=== PATIENT | female | born 1950 | race Caucasian/White ===

== ENCOUNTER 2018-02-13 11:22 | Inpatient (IN) | payer MEDICARE, OTHER ==
[2018-02-13 11:59] LABS: ADD MAN DIFF? NO
[2018-02-13 12:00] LABS: WHITE BLOOD COUNT 9.3 10^3/ul (4.8-10.8)
[2018-02-13 12:00] LABS: BASOPHIL # 0.1 10^3/ul (0.0-0.1); BASOPHILS % 0.5 % (0.0-2.0); EOSINOPHILS % 0.3 % (0.0-7.0); HEMATOCRIT 45.6 % (37.0-47.0); HEMOGLOBIN 13.8 g/dl (12.0-16.0); LYMPHOCYTES # 1.6 10^3/ul (0.8-2.9); MEAN CORPUSCULAR HEMOGLOBIN 28.3 pg (29.0-33.0); MEAN CORPUSCULAR HGB CONC 30.3 g/dl (32.0-37.0); MEAN CORPUSCULAR VOLUME 93.6 fl (82.0-101.0); MEAN PLATELET VOLUME 10.1 fl (7.4-10.4); MONOCYTE # 0.4 10^3/ul (0.3-0.9); MONOCYTES % 4.2 % (0.0-11.0); NEUTROPHIL # 7.1 10^3/ul (1.6-7.5); NEUTROPHILS % 76.8 % (39.0-77.0); PLATELET COUNT 226 10^3/UL (140-415); RED BLOOD COUNT 4.87 10^6/ul (4.20-5.40); RED CELL DISTRIBUTION WIDTH 14.5 % (11.5-14.5)
[2018-02-13] MEDS ORDERED: NITROGLYCERIN (SL) 0.4 MG TAB SL (12:00)
[2018-02-13 12:27] LABS: ANION GAP 9 (5-13); BLOOD UREA NITROGEN 15 mg/dl (7-20); CALCIUM 10.1 mg/dl (8.4-10.2); CARBON DIOXIDE 32 mmol/L (21-31); CHLORIDE 99 mmol/L (97-110); CREATININE 0.67 mg/dl (0.44-1.00); Estimated GFR > 60 mL/min (>60); GLUCOSE 254 mg/dl (70-220); POTASSIUM 4.5 mmol/L (3.5-5.1); SODIUM 140 mmol/L (135-144)
[2018-02-13 12:39] LABS: TROPONIN-I < 0.012 ng/ml (0.000-0.120)
[2018-02-13] MEDS: FUROSEMIDE 40 MG INJ IV ×2 (12:43→17:34)
[2018-02-13] MEDS: ONDANSETRON (ODT) 4 MG TAB ODT (12:43)
[2018-02-13] MEDS: NITROGLYCERIN 2% 1 GM OINT PKT TD (12:44)
[2018-02-13] MEDS: HYDROCODONE/APAP (10/325) TAB PO (12:44)
[2018-02-13] MEDS: LABETALOL HCL 20MG INJ IV (13:17)
[2018-02-13] MEDS ORDERED: ACETAMINOPHEN 325 MG TAB PO (13:30)
[2018-02-13] MEDS ORDERED: ONDANSETRON 4 MG INJ IV (13:30)
[2018-02-13] MEDS ORDERED: NACL 0.9% 3 ML SYG IV (14:30)
[2018-02-13] MEDS ORDERED: HYDROmorphONE 0.5 MG/0.5 ML SYG IV (14:30)
[2018-02-13] MEDS ORDERED: GLUCOSE GEL 15 GRAM TUBE PO ×2 (15:30)
[2018-02-13] MEDS ORDERED: GLUCAGON 1 MG INJ IM (15:30)
[2018-02-13] MEDS ORDERED: DEXTROSE 50% 50 ML SYRINGE IV ×2 (15:30)
[2018-02-13] MEDS ORDERED: GLUCOSE GEL 15 GRAM TUBE BUCCAL (15:30)
[2018-02-13] MEDS: metFORMIN 500 MG TAB PO (17:33)
[2018-02-13] MEDS: IBUPROFEN 600 MG TAB PO (17:37)
[2018-02-13 19:01] LABS: CREATINE KINASE 36 IU/L (23-200)
[2018-02-13 19:15] LABS: CK INDEX 1.9; CK-MB 0.69 ng/ml (0.0-2.4); TROPONIN-I < 0.012 ng/ml (0.000-0.120)
[2018-02-13] MEDS: POTASSIUM CHLORIDE (SR) 8 MEQ CAP PO (21:07)
[2018-02-14 01:36] LABS: CREATINE KINASE 30 IU/L (23-200)
[2018-02-14 01:48] LABS: CK INDEX 2.9; CK-MB 0.86 ng/ml (0.0-2.4); TROPONIN-I < 0.012 ng/ml (0.000-0.120)
[2018-02-14] MEDS: FUROSEMIDE 40 MG INJ IV ×2 (05:38→17:42)
[2018-02-14] MEDS: IBUPROFEN 600 MG TAB PO (05:44)
[2018-02-14 05:57] LABS: ADD MAN DIFF? NO
[2018-02-14 06:17] LABS: BASOPHIL # 0.1 10^3/ul (0.0-0.1); BASOPHILS % 0.6 % (0.0-2.0); EOSINOPHILS % 0.3 % (0.0-7.0); HEMATOCRIT 40.9 % (37.0-47.0); HEMOGLOBIN 12.2 g/dl (12.0-16.0); LYMPHOCYTES # 1.5 10^3/ul (0.8-2.9); LYMPHOCYTES % 14.3 % (15.0-51.0); MEAN CORPUSCULAR HEMOGLOBIN 28.6 pg (29.0-33.0); MEAN CORPUSCULAR HGB CONC 29.8 g/dl (32.0-37.0); MEAN PLATELET VOLUME 10.5 fl (7.4-10.4); MONOCYTE # 0.6 10^3/ul (0.3-0.9); MONOCYTES % 5.6 % (0.0-11.0); NEUTROPHIL # 8.2 10^3/ul (1.6-7.5); NEUTROPHILS % 78.6 % (39.0-77.0); PLATELET COUNT 217 10^3/UL (140-415); RED BLOOD COUNT 4.26 10^6/ul (4.20-5.40); RED CELL DISTRIBUTION WIDTH 14.6 % (11.5-14.5)
[2018-02-14 06:17] LABS: WHITE BLOOD COUNT 10.4 10^3/ul (4.8-10.8)
[2018-02-14 06:48] LABS: ALANINE AMINOTRANSFERASE 23 IU/L (13-69); ALBUMIN 3.7 g/dl (3.3-4.9); ALBUMIN/GLOBULIN RATIO 1.15; ALKALINE PHOSPHATASE 77 IU/L (42-121); ANION GAP 9 (5-13); ASPARTATE AMINO TRANSFERASE 16 IU/L (15-46); BILIRUBIN,INDIRECT 0.5 mg/dl (0-1.1); BILIRUBIN,TOTAL 0.5 mg/dl (0.2-1.3); BLOOD UREA NITROGEN 18 mg/dl (7-20); CALCIUM 9.3 mg/dl (8.4-10.2); CARBON DIOXIDE 38 mmol/L (21-31); CHLORIDE 98 mmol/L (97-110); CREATININE 0.81 mg/dl (0.44-1.00); Estimated GFR > 60 mL/min (>60); GLUCOSE 176 mg/dl (70-220); POTASSIUM 4.4 mmol/L (3.5-5.1); SODIUM 145 mmol/L (135-144); TOTAL PROTEIN 6.9 g/dl (6.1-8.1)
[2018-02-14 06:57] LABS: HEMOGLOBIN A1C 8.5 % (0-5.9)
[2018-02-14] MEDS: POTASSIUM CHLORIDE (SR) 8 MEQ CAP PO ×2 (08:03→20:45)
[2018-02-14] MEDS: LOSARTAN 50 MG TAB PO (08:04)
[2018-02-14] MEDS: metFORMIN 500 MG TAB PO ×2 (08:04→17:40)
[2018-02-14] MEDS: HYDROCODONE/APAP (5/325) TAB PO (08:05)
[2018-02-14] MEDS: ENOXAPARIN 30 MG/0.3 ML SYG SC (08:06)
[2018-02-14] MEDS ORDERED: NYSTATIN 30 GM POWDER BTL TOP (11:00)
[2018-02-14] MEDS: NYSTATIN 15 GM POWDER BTL TOP ×2 (12:36→20:46)
[2018-02-15] MEDS: HYDROCODONE/APAP (5/325) TAB PO (03:34)
[2018-02-15] MEDS: FUROSEMIDE 40 MG INJ IV (05:56)
[2018-02-15] MEDS: ENOXAPARIN 30 MG/0.3 ML SYG SC (09:00)
[2018-02-15] MEDS: NYSTATIN 15 GM POWDER BTL TOP (09:01)
[2018-02-15] MEDS: POTASSIUM CHLORIDE (SR) 8 MEQ CAP PO (09:01)
[2018-02-15] MEDS: metFORMIN 500 MG TAB PO (09:02)
[2018-02-15] MEDS: LOSARTAN 50 MG TAB PO (09:03)
== END 2018-02-15 11:22 | disposition home or self-care (01) | DRG 551 ==
LOC: E/R 11:22 → 6WM 13:24
DX: S22.079A Unspecified fracture of T9-T10 vertebra, initial encounter for closed fracture (principal); I50.33 Acute on chronic diastolic (congestive) heart failure; J96.11 Chronic respiratory failure with hypoxia; Z68.43 Body mass index [BMI] 50.0-59.9, adult; Z99.81 Dependence on supplemental oxygen; I11.0 Hypertensive heart disease with heart failure; J44.9 Chronic obstructive pulmonary disease, unspecified; E66.9 Obesity, unspecified; E11.9 Type 2 diabetes mellitus without complications; W01.198A Fall on same level from slipping, tripping and stumbling with subsequent striking against other object, initial encounter; Y93.89 Activity, other specified; Y92.89 Other specified places as the place of occurrence of the external cause; Y99.8 Other external cause status; Z79.82 Long term (current) use of aspirin; Z85.42 Personal history of malignant neoplasm of other parts of uterus; Z79.84 Long term (current) use of oral hypoglycemic drugs
CPT/HCPCS: 36415; 70450; 71045; 71100; 71250; 72125; 80048; 80053; 82550; 82553; 82962; 83036; 84484; 85025; 93005; 93306; 96374; 96375; 97161; 99285-25

== ENCOUNTER 2018-05-31 11:31 | Inpatient (IN) | payer MEDICARE, OTHER ==
[2018-05-31 12:08] LABS: ADD MAN DIFF? NO
[2018-05-31 12:12] LABS: BASOPHIL # 0.1 10^3/ul (0.0-0.1); BASOPHILS % 0.4 % (0.0-2.0); EOSINOPHILS % 0.2 % (0.0-7.0); HEMATOCRIT 43.7 % (37.0-47.0); HEMOGLOBIN 13.1 g/dl (12.0-16.0); LYMPHOCYTES # 1.5 10^3/ul (0.8-2.9); LYMPHOCYTES % 12.1 % (15.0-51.0); MEAN CORPUSCULAR HEMOGLOBIN 28.2 pg (29.0-33.0); MEAN CORPUSCULAR VOLUME 94.2 fl (82.0-101.0); MEAN PLATELET VOLUME 10.7 fl (7.4-10.4); MONOCYTE # 0.6 10^3/ul (0.3-0.9); MONOCYTES % 5.2 % (0.0-11.0); NEUTROPHIL # 9.8 10^3/ul (1.6-7.5); NEUTROPHILS % 81.5 % (39.0-77.0); PLATELET COUNT 214 10^3/UL (140-415); RED BLOOD COUNT 4.64 10^6/ul (4.20-5.40); RED CELL DISTRIBUTION WIDTH 14.6 % (11.5-14.5)
[2018-05-31 12:29] LABS: ANION GAP 9 (5-13); BLOOD UREA NITROGEN 13 mg/dl (7-20); CALCIUM 9.9 mg/dl (8.4-10.2); CARBON DIOXIDE 32 mmol/L (21-31); CHLORIDE 99 mmol/L (97-110); CREATININE 0.73 mg/dl (0.44-1.00); Estimated GFR > 60 mL/min (>60); GLUCOSE 284 mg/dl (70-220); POTASSIUM 4.6 mmol/L (3.5-5.1); SODIUM 140 mmol/L (135-144)
[2018-05-31 12:30] LABS: INR 1.25; PARTIAL THROMBOPLASTIN TIME 33.3 Sec (23.0-35.0); PROTIME 15.8 Sec (11.9-14.9); PT RATIO 1.2
[2018-05-31 12:41] LABS: TROPONIN-I < 0.012 ng/ml (0.000-0.120)
[2018-05-31] MEDS: FUROSEMIDE 40 MG INJ IV (12:57)
[2018-05-31] MEDS: ASPIRIN 81 MG TAB PO (12:58)
[2018-05-31] MEDS: NITROGLYCERIN 2% 1 GM OINT PKT TD (12:58)
[2018-05-31] MEDS ORDERED: NITROGLYCERIN (SL) 0.4 MG TAB SL ×2 (13:00→14:30)
[2018-05-31] MEDS ORDERED: ACETAMINOPHEN 325 MG TAB PO ×2 (13:30→14:30)
[2018-05-31] MEDS ORDERED: ONDANSETRON 4 MG INJ IV ×2 (13:30→14:30)
[2018-05-31] MEDS ORDERED: hydrALAzine 20 MG INJ IV (14:30)
[2018-05-31] MEDS ORDERED: DOCUSATE SODIUM 100 MG CAP PO (14:30)
[2018-05-31] MEDS ORDERED: PROVENTIL HFA 6.7GM INHALER INH (14:30)
[2018-05-31] MEDS ORDERED: NACL 0.9% 3 ML SYG IV (14:30)
[2018-05-31] MEDS ORDERED: LORAZEPAM 2 MG INJ IV (14:30)
[2018-05-31] MEDS ORDERED: MAGNESIUM HYDROXIDE 30ML CUP PO (14:30)
[2018-05-31] MEDS ORDERED: ALBUTEROL/IPRATROPIUM (NEB) 3 ML AMP HHN (14:30)
[2018-05-31] MEDS ORDERED: HYDROCODONE/APAP (5/325) TAB PO (14:30)
[2018-05-31] MEDS ORDERED: morphine 2 MG INJ IV (14:30)
[2018-05-31] MEDS ORDERED: IBUPROFEN 800 MG TAB PO (14:30)
[2018-05-31 16:30] LABS: B-TYPE NATRIURETIC PEPTIDE 1830 PG/ML (0-125)
[2018-05-31] MEDS: LEVOFLOXACIN 750MG/D5W (PMX) 150 ML IVPB (17:16)
[2018-05-31] MEDS ORDERED: FUROSEMIDE 40 MG INJ IV (18:00)
[2018-05-31] MEDS: INSULIN ASPART [NOVOLOG] 3 ML PEN SC ×2 (18:02→20:54)
[2018-05-31 18:35] LABS: CREATINE KINASE 30 IU/L (23-200)
[2018-05-31 18:44] LABS: CK INDEX 1.8; CK-MB 0.53 ng/ml (0.0-2.4)
[2018-05-31] MEDS: BUMETANIDE 3 MG in DEXTROSE 5% 18 ML IV (18:44)
[2018-05-31 18:47] LABS: TROPONIN-I < 0.012 ng/ml (0.000-0.120)
[2018-05-31] MEDS: APIXABAN 5 MG TABLET PO (20:45)
[2018-05-31] MEDS: POTASSIUM CHLORIDE (SR) 8 MEQ CAP PO (20:45)
[2018-05-31] MEDS: ATORVASTATIN 20 MG TAB PO (20:45)
[2018-05-31] MEDS ORDERED: INSULIN GLARGINE [LANTus] (100 UNITS/ML) SYG SC (21:00)
[2018-05-31] MEDS: INSULIN GLARGINE [LANtus] 3 ML PEN SC (21:00)
[2018-06-01] MEDS: INSULIN ASPART [NOVOLOG] 3 ML PEN SC ×6 (00:47→21:04)
[2018-06-01 01:33] LABS: CREATINE KINASE 21 IU/L (23-200)
[2018-06-01 01:44] LABS: CK INDEX 1.5; CK-MB 0.31 ng/ml (0.0-2.4); TROPONIN-I < 0.012 ng/ml (0.000-0.120)
[2018-06-01] MEDS: ACCU-CHEK XX (01:54)
[2018-06-01] MEDS: BUMETANIDE 1 MG INJ IV (05:40)
[2018-06-01] MEDS: PANTOPRAZOLE (EC) 40 MG TAB PO (05:40)
[2018-06-01 05:57] LABS: ADD MAN DIFF? NO
[2018-06-01 06:12] LABS: BASOPHIL # 0.1 10^3/ul (0.0-0.1); BASOPHILS % 0.5 % (0.0-2.0); EOSINOPHILS % 0.2 % (0.0-7.0); HEMATOCRIT 40.7 % (37.0-47.0); HEMOGLOBIN 12.3 g/dl (12.0-16.0); LYMPHOCYTES # 1.7 10^3/ul (0.8-2.9); LYMPHOCYTES % 15.7 % (15.0-51.0); MEAN CORPUSCULAR HGB CONC 30.2 g/dl (32.0-37.0); MEAN CORPUSCULAR VOLUME 92.5 fl (82.0-101.0); MEAN PLATELET VOLUME 10.6 fl (7.4-10.4); MONOCYTE # 0.6 10^3/ul (0.3-0.9); MONOCYTES % 5.6 % (0.0-11.0); NEUTROPHIL # 8.3 10^3/ul (1.6-7.5); NEUTROPHILS % 77.6 % (39.0-77.0); PLATELET COUNT 216 10^3/UL (140-415); RED CELL DISTRIBUTION WIDTH 14.6 % (11.5-14.5)
[2018-06-01 06:12] LABS: WHITE BLOOD COUNT 10.7 10^3/ul (4.8-10.8)
[2018-06-01 06:31] LABS: CHOLESTEROL 87 mg/dl (100-200)
[2018-06-01 06:31] LABS: CHOL/HDL RATIO 2.4 RATIO; HDL CHOLESTEROL 35 mg/dl (35-98); LDL CHOLESTEROL,CALCULATED 33 mg/dl; TRIGLYCERIDES 94 mg/dl (0-149)
[2018-06-01 06:33] LABS: ANION GAP 7 (5-13); BLOOD UREA NITROGEN 12 mg/dl (7-20); CALCIUM 9.5 mg/dl (8.4-10.2); CARBON DIOXIDE 39 mmol/L (21-31); CHLORIDE 95 mmol/L (97-110); CREATININE 0.74 mg/dl (0.44-1.00); Estimated GFR > 60 mL/min (>60); GLUCOSE 180 mg/dl (70-220); MAGNESIUM 1.4 mg/dl (1.7-2.5); PHOSPHORUS 3.3 mg/dl (2.5-4.9); POTASSIUM 3.8 mmol/L (3.5-5.1); SODIUM 141 mmol/L (135-144)
[2018-06-01 06:38] LABS: HEMOGLOBIN A1C 9.2 % (0-5.9)
[2018-06-01] MEDS: LOSARTAN 50 MG TAB PO (08:02)
[2018-06-01] MEDS: AMLODIPINE 10 MG TAB PO (08:02)
[2018-06-01] MEDS: POTASSIUM CHLORIDE (SR) 8 MEQ CAP PO ×2 (08:03→20:54)
[2018-06-01] MEDS: APIXABAN 5 MG TABLET PO ×2 (08:03→20:54)
[2018-06-01] MEDS: GABAPENTIN 100 MG CAP PO (08:03)
[2018-06-01] MEDS: INSULIN GLARGINE [LANtus] 3 ML PEN SC (08:09)
[2018-06-01] MEDS ORDERED: GLUCAGON 1 MG INJ IM (13:00)
[2018-06-01] MEDS ORDERED: GLUCOSE GEL 15 GRAM TUBE PO ×2 (13:00)
[2018-06-01] MEDS ORDERED: DEXTROSE 50% 50 ML SYRINGE IV ×2 (13:00)
[2018-06-01] MEDS ORDERED: GLUCOSE GEL 15 GRAM TUBE BUCCAL (13:00)
[2018-06-01] MEDS: DIGOXIN 0.25 MG TAB PO (13:12)
[2018-06-01] MEDS: MAGNESIUM SULFATE 3 GM in DEXTROSE 5% 100 ML IVPB (13:13)
[2018-06-01] MEDS: POTASSIUM CHLORIDE (SR) 20 MEQ TAB PO (16:37)
[2018-06-01] MEDS: LEVOFLOXACIN 750MG/D5W (PMX) 150 ML IVPB (16:37)
[2018-06-01] MEDS ORDERED: ALBUTEROL HFA 8 GM INHALER INH (17:00)
[2018-06-01] MEDS ORDERED: MAGNESIUM SULFATE 4 GM/100 ML 100 ML IVPB (17:30)
[2018-06-01] MEDS: BUMETANIDE 3 MG in DEXTROSE 5% 18 ML IV (18:52)
[2018-06-01] MEDS: ATORVASTATIN 20 MG TAB PO (20:53)
[2018-06-01] MEDS: METOPROLOL 25 MG TAB PO (20:54)
[2018-06-01] MEDS: INSULIN GLARGINE [LANTus] (100 UNITS/ML) SYG SC (23:14)
[2018-06-02] MEDS: ACCU-CHEK XX (02:00)
[2018-06-02] MEDS: BUMETANIDE 1 MG INJ IV ×2 (06:36→17:22)
[2018-06-02] MEDS: PANTOPRAZOLE (EC) 40 MG TAB PO (06:36)
[2018-06-02 07:02] LABS: ADD MAN DIFF? NO
[2018-06-02 07:04] LABS: BASOPHILS % 0.3 % (0.0-2.0); EOSINOPHILS % 0.3 % (0.0-7.0); HEMATOCRIT 43.9 % (37.0-47.0); HEMOGLOBIN 13.1 g/dl (12.0-16.0); LYMPHOCYTES # 1.8 10^3/ul (0.8-2.9); LYMPHOCYTES % 17.6 % (15.0-51.0); MEAN CORPUSCULAR HEMOGLOBIN 28.2 pg (29.0-33.0); MEAN CORPUSCULAR HGB CONC 29.8 g/dl (32.0-37.0); MEAN CORPUSCULAR VOLUME 94.4 fl (82.0-101.0); MEAN PLATELET VOLUME 10.7 fl (7.4-10.4); MONOCYTE # 0.7 10^3/ul (0.3-0.9); MONOCYTES % 6.6 % (0.0-11.0); NEUTROPHIL # 7.8 10^3/ul (1.6-7.5); NEUTROPHILS % 74.8 % (39.0-77.0); PLATELET COUNT 235 10^3/UL (140-415); RED BLOOD COUNT 4.65 10^6/ul (4.20-5.40); RED CELL DISTRIBUTION WIDTH 14.6 % (11.5-14.5)
[2018-06-02 07:04] LABS: WHITE BLOOD COUNT 10.4 10^3/ul (4.8-10.8)
[2018-06-02 07:33] LABS: MAGNESIUM 1.9 mg/dl (1.7-2.5)
[2018-06-02 07:33] LABS: PHOSPHORUS 3.4 mg/dl (2.5-4.9)
[2018-06-02 07:36] LABS: BLOOD UREA NITROGEN 14 mg/dl (7-20); CALCIUM 9.8 mg/dl (8.4-10.2); CHLORIDE 91 mmol/L (97-110); CREATININE 0.85 mg/dl (0.44-1.00); Estimated GFR > 60 mL/min (>60); GLUCOSE 262 mg/dl (70-220); POTASSIUM 4.4 mmol/L (3.5-5.1); SODIUM 141 mmol/L (135-144)
[2018-06-02 07:46] LABS: ANION GAP 9 (5-13)
[2018-06-02 07:48] LABS: CARBON DIOXIDE 41 mmol/L (21-31)
[2018-06-02] MEDS: GABAPENTIN 100 MG CAP PO (08:02)
[2018-06-02] MEDS: LOSARTAN 50 MG TAB PO (08:03)
[2018-06-02] MEDS: METOPROLOL 25 MG TAB PO ×2 (08:03→21:22)
[2018-06-02] MEDS: APIXABAN 5 MG TABLET PO ×2 (08:03→21:21)
[2018-06-02] MEDS: POTASSIUM CHLORIDE (SR) 8 MEQ CAP PO ×2 (08:03→21:22)
[2018-06-02] MEDS: AMLODIPINE 10 MG TAB PO (08:04)
[2018-06-02] MEDS: INSULIN GLARGINE [LANTus] (100 UNITS/ML) SYG SC ×2 (08:08→23:07)
[2018-06-02] MEDS: INSULIN ASPART [NOVOLOG] 3 ML PEN SC ×6 (08:08→21:39)
[2018-06-02] MEDS: DIGOXIN 0.25 MG TAB PO (14:00)
[2018-06-02] MEDS: LEVOFLOXACIN 750MG/D5W (PMX) 150 ML IVPB (17:05)
[2018-06-02] MEDS: ATORVASTATIN 20 MG TAB PO (21:21)
[2018-06-03] MEDS: ACCU-CHEK XX (01:28)
[2018-06-03] MEDS: LEVOFLOXACIN 750 MG TABLET PO (05:57)
[2018-06-03] MEDS: BUMETANIDE 1 MG INJ IV ×2 (05:57→17:42)
[2018-06-03] MEDS: PANTOPRAZOLE (EC) 40 MG TAB PO (05:57)
[2018-06-03 06:20] LABS: ADD MAN DIFF? NO
[2018-06-03 06:28] LABS: BASOPHIL # 0.1 10^3/ul (0.0-0.1); BASOPHILS % 0.5 % (0.0-2.0); EOSINOPHILS % 0.4 % (0.0-7.0); HEMOGLOBIN 13.4 g/dl (12.0-16.0); LYMPHOCYTES # 1.9 10^3/ul (0.8-2.9); LYMPHOCYTES % 19.4 % (15.0-51.0); MEAN CORPUSCULAR HEMOGLOBIN 28.3 pg (29.0-33.0); MEAN CORPUSCULAR HGB CONC 29.8 g/dl (32.0-37.0); MEAN CORPUSCULAR VOLUME 95.1 fl (82.0-101.0); MEAN PLATELET VOLUME 10.7 fl (7.4-10.4); MONOCYTE # 0.6 10^3/ul (0.3-0.9); MONOCYTES % 5.9 % (0.0-11.0); NEUTROPHIL # 7.1 10^3/ul (1.6-7.5); NEUTROPHILS % 73.4 % (39.0-77.0); PLATELET COUNT 240 10^3/UL (140-415); RED BLOOD COUNT 4.73 10^6/ul (4.20-5.40); RED CELL DISTRIBUTION WIDTH 14.6 % (11.5-14.5)
[2018-06-03 06:28] LABS: WHITE BLOOD COUNT 9.6 10^3/ul (4.8-10.8)
[2018-06-03 06:58] LABS: BLOOD UREA NITROGEN 17 mg/dl (7-20); CALCIUM 9.6 mg/dl (8.4-10.2); CHLORIDE 93 mmol/L (97-110); CREATININE 0.86 mg/dl (0.44-1.00); Estimated GFR > 60 mL/min (>60); GLUCOSE 207 mg/dl (70-220); SODIUM 140 mmol/L (135-144)
[2018-06-03 07:16] LABS: ANION GAP 9 (5-13); POTASSIUM 4.2 mmol/L (3.5-5.1)
[2018-06-03 07:22] LABS: CARBON DIOXIDE 38 mmol/L (21-31)
[2018-06-03] MEDS: POTASSIUM CHLORIDE (SR) 8 MEQ CAP PO ×2 (08:16→20:13)
[2018-06-03] MEDS: LOSARTAN 50 MG TAB PO (08:16)
[2018-06-03] MEDS: AMLODIPINE 10 MG TAB PO (08:16)
[2018-06-03] MEDS: METOPROLOL 25 MG TAB PO (08:16)
[2018-06-03] MEDS: APIXABAN 5 MG TABLET PO ×2 (08:17→20:12)
[2018-06-03] MEDS: GABAPENTIN 100 MG CAP PO (08:17)
[2018-06-03] MEDS: INSULIN GLARGINE [LANTus] (100 UNITS/ML) SYG SC ×2 (08:23→20:25)
[2018-06-03] MEDS: INSULIN ASPART [NOVOLOG] 3 ML PEN SC ×8 (08:24→20:23)
[2018-06-03] MEDS ORDERED: INSULIN GLARGINE [LANTus] (100 UNITS/ML) SYG SC (09:00)
[2018-06-03] MEDS: DIGOXIN 0.25 MG TAB PO (12:11)
[2018-06-03] MEDS: SPIRONOLACTONE 25 MG TAB PO (17:42)
[2018-06-03] MEDS: ATORVASTATIN 20 MG TAB PO (20:13)
[2018-06-03] MEDS: METOPROLOL (XL) 25 MG TAB PO (20:14)
[2018-06-04] MEDS: ACCU-CHEK XX (02:00)
[2018-06-04 05:49] LABS: ADD MAN DIFF? NO
[2018-06-04] MEDS: LEVOFLOXACIN 750 MG TABLET PO (05:51)
[2018-06-04] MEDS: PANTOPRAZOLE (EC) 40 MG TAB PO (05:51)
[2018-06-04] MEDS: BUMETANIDE 1 MG INJ IV ×2 (05:52→17:23)
[2018-06-04 05:57] LABS: BASOPHILS % 0.3 % (0.0-2.0); EOSINOPHILS # 0.1 10^3/ul (0.0-0.5); EOSINOPHILS % 0.5 % (0.0-7.0); HEMATOCRIT 44.3 % (37.0-47.0); HEMOGLOBIN 13.2 g/dl (12.0-16.0); LYMPHOCYTES # 1.7 10^3/ul (0.8-2.9); LYMPHOCYTES % 17.1 % (15.0-51.0); MEAN CORPUSCULAR HEMOGLOBIN 28.1 pg (29.0-33.0); MEAN CORPUSCULAR HGB CONC 29.8 g/dl (32.0-37.0); MEAN CORPUSCULAR VOLUME 94.5 fl (82.0-101.0); MEAN PLATELET VOLUME 10.6 fl (7.4-10.4); MONOCYTE # 0.5 10^3/ul (0.3-0.9); MONOCYTES % 5.3 % (0.0-11.0); NEUTROPHIL # 7.7 10^3/ul (1.6-7.5); NEUTROPHILS % 76.4 % (39.0-77.0); PLATELET COUNT 241 10^3/UL (140-415); RED BLOOD COUNT 4.69 10^6/ul (4.20-5.40); RED CELL DISTRIBUTION WIDTH 14.2 % (11.5-14.5)
[2018-06-04 05:57] LABS: WHITE BLOOD COUNT 10.1 10^3/ul (4.8-10.8)
[2018-06-04 06:23] LABS: BLOOD UREA NITROGEN 19 mg/dl (7-20); CALCIUM 9.7 mg/dl (8.4-10.2); CHLORIDE 92 mmol/L (97-110); CREATININE 0.86 mg/dl (0.44-1.00); Estimated GFR > 60 mL/min (>60); GLUCOSE 288 mg/dl (70-220); SODIUM 137 mmol/L (135-144)
[2018-06-04 06:30] LABS: ANION GAP 7 (5-13); CARBON DIOXIDE 38 mmol/L (21-31)
[2018-06-04 06:32] LABS: MAGNESIUM 1.6 mg/dl (1.7-2.5)
[2018-06-04 07:52] LABS: B-TYPE NATRIURETIC PEPTIDE 701 PG/ML (0-125)
[2018-06-04] MEDS: AMLODIPINE 10 MG TAB PO (08:29)
[2018-06-04] MEDS: METOPROLOL (XL) 25 MG TAB PO (08:29)
[2018-06-04] MEDS: LOSARTAN 50 MG TAB PO (08:30)
[2018-06-04] MEDS: APIXABAN 5 MG TABLET PO (08:30)
[2018-06-04] MEDS: GABAPENTIN 100 MG CAP PO (08:30)
[2018-06-04] MEDS: POTASSIUM CHLORIDE (SR) 8 MEQ CAP PO (08:30)
[2018-06-04] MEDS: SPIRONOLACTONE 25 MG TAB PO (08:30)
[2018-06-04] MEDS: INSULIN ASPART [NOVOLOG] 3 ML PEN SC ×6 (08:37→17:26)
[2018-06-04] MEDS: INSULIN GLARGINE [LANTus] (100 UNITS/ML) SYG SC (08:38)
[2018-06-04] MEDS: DIGOXIN 0.25 MG TAB PO (12:15)
[2018-06-04] MEDS: MAGNESIUM SULFATE 1 GM/D5W 100 ML IVPB (15:38)
== END 2018-06-04 18:31 | disposition home or self-care (01) | DRG 291 ==
LOC: E/R 11:31 → TEL 13:02
PROC: 5A09357 Assistance with Respiratory Ventilation, Less than 24 Consecutive Hours, Continuous Positive Airway Pressure (ICD-10-PCS; principal; 2018-05-31)
DX: I11.0 Hypertensive heart disease with heart failure (principal); J96.01 Acute respiratory failure with hypoxia; Z68.43 Body mass index [BMI] 50.0-59.9, adult; E66.2 Morbid (severe) obesity with alveolar hypoventilation; Z99.81 Dependence on supplemental oxygen; I48.91 Unspecified atrial fibrillation; I50.33 Acute on chronic diastolic (congestive) heart failure; E11.9 Type 2 diabetes mellitus without complications; I16.0 Hypertensive urgency; Z79.82 Long term (current) use of aspirin; Z79.4 Long term (current) use of insulin; Z79.02 Long term (current) use of antithrombotics/antiplatelets
CPT/HCPCS: 36415; 71045; 80048; 80061; 82550; 82553; 82962; 83036; 83735; 83880; 84100; 84439; 84443; 84484; 85025; 85610; 85730; 92610; 93005; 93306; 94660; 96374; 97116; 97161; 97167; 97530; 99291-25

== ENCOUNTER 2018-08-04 10:08 | Inpatient (IN) | payer MEDICARE, OTHER ==
[2018-08-04 10:58] LABS: ADD MAN DIFF? NO
[2018-08-04 11:02] LABS: BASOPHIL # 0.1 10^3/ul (0.0-0.1); BASOPHILS % 0.5 % (0.0-2.0); EOSINOPHILS % 0.2 % (0.0-7.0); HEMATOCRIT 42.8 % (37.0-47.0); HEMOGLOBIN 12.5 g/dl (12.0-16.0); LYMPHOCYTES # 1.6 10^3/ul (0.8-2.9); LYMPHOCYTES % 15.5 % (15.0-51.0); MEAN CORPUSCULAR HEMOGLOBIN 27.5 pg (29.0-33.0); MEAN CORPUSCULAR HGB CONC 29.2 g/dl (32.0-37.0); MEAN CORPUSCULAR VOLUME 94.3 fl (82.0-101.0); MEAN PLATELET VOLUME 10.4 fl (7.4-10.4); MONOCYTE # 0.4 10^3/ul (0.3-0.9); MONOCYTES % 3.7 % (0.0-11.0); NEUTROPHILS % 79.5 % (39.0-77.0); PLATELET COUNT 249 10^3/UL (140-415); RED BLOOD COUNT 4.54 10^6/ul (4.20-5.40); RED CELL DISTRIBUTION WIDTH 14.6 % (11.5-14.5)
[2018-08-04 11:02] LABS: WHITE BLOOD COUNT 10.1 10^3/ul (4.8-10.8)
[2018-08-04 11:20] LABS: INR 1.37; PT RATIO 1.3
[2018-08-04 11:21] LABS: PARTIAL THROMBOPLASTIN TIME 31.5 Sec (23.0-35.0)
[2018-08-04 11:26] LABS: ALANINE AMINOTRANSFERASE 13 IU/L (13-69); ALBUMIN/GLOBULIN RATIO 1.25; ALKALINE PHOSPHATASE 110 IU/L (42-121); ANION GAP 10 (5-13); ASPARTATE AMINO TRANSFERASE 15 IU/L (15-46); BILIRUBIN,INDIRECT 0.6 mg/dl (0-1.1); BILIRUBIN,TOTAL 0.6 mg/dl (0.2-1.3); BLOOD UREA NITROGEN 24 mg/dl (7-20); CARBON DIOXIDE 31 mmol/L (21-31); CHLORIDE 102 mmol/L (97-110); CREATININE 1.03 mg/dl (0.44-1.00); Estimated GFR 54 mL/min (>60); GLUCOSE 236 mg/dl (70-220); POTASSIUM 4.8 mmol/L (3.5-5.1); SODIUM 143 mmol/L (135-144); TOTAL PROTEIN 7.2 g/dl (6.1-8.1)
[2018-08-04] MEDS: IPRATROPIUM (NEB) 0.5 MG/2.5 ML AMP INH (11:27)
[2018-08-04] MEDS: ALBUTEROL 0.5% (NEB) 2.5 MG/0.5 ML AMP INH (11:27)
[2018-08-04 11:31] LABS: CREATINE KINASE < 20 IU/L (23-200)
[2018-08-04 11:38] LABS: B-TYPE NATRIURETIC PEPTIDE 1610 PG/ML (0-125); CK-MB 0.34 ng/ml (0.0-2.4); TROPONIN-I < 0.012 ng/ml (0.000-0.120)
[2018-08-04] MEDS ORDERED: ACETAMINOPHEN 325 MG TAB PO (12:30)
[2018-08-04] MEDS ORDERED: ONDANSETRON 4 MG INJ IV (12:30)
[2018-08-04 12:55] LABS: Allen Test ACCEPTAB; Arterial Base Excess 0.9 mmol/L (-3.0-3); Arterial Blood Gas Oxygen Sat 91.6 mmHG (95.0-98.0); Arterial COHb 0.7 % (0.0-3.0); Arterial Fraction of Oxyhgb 90.9 % (93.0-99.0); Arterial HCO3 30.4 mmol/L (22.0-26.0); Arterial MetHb 0.1 % (0.0-1.5); Arterial pCO2 73.3 mmhg (35-45); MODE NASAL CANNULA; Site Right Radial
[2018-08-04] MEDS ORDERED: NACL 0.9% 3 ML SYG IV (14:30)
[2018-08-04] MEDS ORDERED: morphine 2 MG INJ IV (14:30)
[2018-08-04] MEDS ORDERED: GLUCOSE GEL 15 GRAM TUBE PO ×2 (15:30)
[2018-08-04] MEDS ORDERED: GLUCOSE GEL 15 GRAM TUBE BUCCAL (15:30)
[2018-08-04] MEDS ORDERED: DEXTROSE 50% 50 ML SYRINGE IV ×2 (15:30)
[2018-08-04] MEDS ORDERED: GLUCAGON 1 MG INJ IM (15:30)
[2018-08-04] MEDS: FUROSEMIDE 40 MG INJ IV ×2 (16:16→21:49)
[2018-08-04 16:36] LABS: ADD UMIC NO; UR ASCORBIC ACID 20 mg/dL (NEGATIVE); UR BILIRUBIN (Dip) NEGATIVE (NEGATIVE); UR BLOOD (Dip) NEGATIVE (NEGATIVE); UR CLARITY SLIGHTLY CLOUDY (CLEAR); UR COLOR YELLOW (YELLOW); UR GLUCOSE (Dip) 3+ mg/dL (NEGATIVE); UR KETONES (Dip) NEGATIVE (NEGATIVE); UR LEUKOCYTE ESTERASE (Dip) NEGATIVE Leu/ul (NEGATIVE); UR MUCUS FEW /HPF (NONE SEEN); UR NITRITE (Dip) NEGATIVE (NEGATIVE); UR RBC 1 /HPF (0-5); UR SPECIFIC GRAVITY (Dip) 1.017 (1.003-1.030); UR SQUAMOUS EPITHELIAL CELL FEW /HPF (FEW); UR TOTAL PROTEIN (Dip) NEGATIVE (NEGATIVE); UR UROBILINOGEN (Dip) NEGATIVE (NEGATIVE); UR WBC 5 /HPF (0-5)
[2018-08-04] MEDS: INSULIN ASPART [NOVOLOG] 3 ML PEN SC ×3 (18:42→21:00)
[2018-08-04] MEDS: ALBUTEROL/IPRATROPIUM (NEB) 3 ML AMP HHN (21:01)
[2018-08-04] MEDS: APIXABAN 5 MG TABLET PO (21:47)
[2018-08-04] MEDS: ATORVASTATIN 20 MG TAB PO (21:47)
[2018-08-04 23:49] LABS: AADO2 Arterial 146.7 mmHg (7.0-24.0); Allen Test ACCEPTAB; Arterial Base Excess 3.4 mmol/L (-3.0-3); Arterial Blood Gas Oxygen Sat 91.9 mmHG (95.0-98.0); Arterial COHb 0.3 % (0.0-3.0); Arterial Fraction of Oxyhgb 91.5 % (93.0-99.0); Arterial HCO3 31.1 mmol/L (22.0-26.0); Arterial MetHb 0.1 % (0.0-1.5); Arterial pCO2 62.1 mmhg (35-45); Blood Gas IEPAP 15/5; MODE MASK - BIPAP; Site Right Radial
[2018-08-05] MEDS: INSULIN GLARGINE [LANTus] (100 UNITS/ML) SYG SC ×2 (00:06→21:31)
[2018-08-05] MEDS: ALBUTEROL/IPRATROPIUM (NEB) 3 ML AMP HHN ×6 (01:13→21:12)
[2018-08-05] MEDS: PIPER-TAZO 3.375 GM IV (PMX) 100 ML IVPB ×4 (02:39→20:16)
[2018-08-05 05:52] LABS: ADD MAN DIFF? NO
[2018-08-05 05:59] LABS: WHITE BLOOD COUNT 8.8 10^3/ul (4.8-10.8)
[2018-08-05 05:59] LABS: BASOPHILS % 0.5 % (0.0-2.0); EOSINOPHILS % 0.2 % (0.0-7.0); HEMATOCRIT 39.9 % (37.0-47.0); HEMOGLOBIN 11.8 g/dl (12.0-16.0); LYMPHOCYTES # 1.6 10^3/ul (0.8-2.9); LYMPHOCYTES % 18.1 % (15.0-51.0); MEAN CORPUSCULAR HEMOGLOBIN 27.8 pg (29.0-33.0); MEAN CORPUSCULAR HGB CONC 29.6 g/dl (32.0-37.0); MEAN CORPUSCULAR VOLUME 94.1 fl (82.0-101.0); MEAN PLATELET VOLUME 10.9 fl (7.4-10.4); MONOCYTE # 0.5 10^3/ul (0.3-0.9); MONOCYTES % 5.1 % (0.0-11.0); NEUTROPHIL # 6.7 10^3/ul (1.6-7.5); NEUTROPHILS % 75.6 % (39.0-77.0); PLATELET COUNT 228 10^3/UL (140-415); RED BLOOD COUNT 4.24 10^6/ul (4.20-5.40); RED CELL DISTRIBUTION WIDTH 14.3 % (11.5-14.5)
[2018-08-05 06:15] LABS: HEMOGLOBIN A1C 8.8 % (0-5.9)
[2018-08-05 06:28] LABS: ALANINE AMINOTRANSFERASE 16 IU/L (13-69); ALBUMIN 3.5 g/dl (3.3-4.9); ALBUMIN/GLOBULIN RATIO 1.16; ALKALINE PHOSPHATASE 97 IU/L (42-121); ANION GAP 6 (5-13); ASPARTATE AMINO TRANSFERASE 15 IU/L (15-46); BILIRUBIN,INDIRECT 0.4 mg/dl (0-1.1); BILIRUBIN,TOTAL 0.4 mg/dl (0.2-1.3); BLOOD UREA NITROGEN 24 mg/dl (7-20); CALCIUM 10.2 mg/dl (8.4-10.2); CARBON DIOXIDE 32 mmol/L (21-31); CHLORIDE 106 mmol/L (97-110); CREATININE 1.04 mg/dl (0.44-1.00); Estimated GFR 53 mL/min (>60); GLUCOSE 116 mg/dl (70-220); SODIUM 144 mmol/L (135-144); TOTAL PROTEIN 6.5 g/dl (6.1-8.1)
[2018-08-05] MEDS: FUROSEMIDE 40 MG INJ IV ×2 (07:15→17:29)
[2018-08-05] MEDS: INSULIN ASPART [NOVOLOG] 3 ML PEN SC ×7 (07:55→21:31)
[2018-08-05] MEDS: APIXABAN 5 MG TABLET PO ×2 (08:48→20:16)
[2018-08-05] MEDS: AMLODIPINE 10 MG TAB PO (08:48)
[2018-08-05] MEDS ORDERED: VANCOMYCIN IV PER PHARMACY XX (11:00)
[2018-08-05] MEDS: VANCOMYCIN HCL 2 GM in SOD CHLORIDE 0.9% 500 ML IVPB (13:50)
[2018-08-05] MEDS: DIGOXIN 0.25 MG TAB PO (13:50)
[2018-08-05] MEDS: ATORVASTATIN 20 MG TAB PO (20:16)
[2018-08-06] MEDS: VANCOMYCIN 1 GM 250 ML IVPB ×2 (02:14→13:59)
[2018-08-06] MEDS: ALBUTEROL/IPRATROPIUM (NEB) 3 ML AMP HHN ×6 (02:43→20:59)
[2018-08-06 06:09] LABS: ADD MAN DIFF? NO
[2018-08-06 06:26] LABS: WHITE BLOOD COUNT 8.5 10^3/ul (4.8-10.8)
[2018-08-06 06:26] LABS: BASOPHIL # 0.1 10^3/ul (0.0-0.1); BASOPHILS % 0.6 % (0.0-2.0); EOSINOPHILS % 0.5 % (0.0-7.0); HEMATOCRIT 40.8 % (37.0-47.0); HEMOGLOBIN 12.2 g/dl (12.0-16.0); LYMPHOCYTES # 1.6 10^3/ul (0.8-2.9); LYMPHOCYTES % 19.1 % (15.0-51.0); MEAN CORPUSCULAR HEMOGLOBIN 27.6 pg (29.0-33.0); MEAN CORPUSCULAR HGB CONC 29.9 g/dl (32.0-37.0); MEAN CORPUSCULAR VOLUME 92.3 fl (82.0-101.0); MEAN PLATELET VOLUME 10.7 fl (7.4-10.4); MONOCYTE # 0.4 10^3/ul (0.3-0.9); MONOCYTES % 5.2 % (0.0-11.0); NEUTROPHIL # 6.3 10^3/ul (1.6-7.5); NEUTROPHILS % 74.4 % (39.0-77.0); PLATELET COUNT 220 10^3/UL (140-415); RED BLOOD COUNT 4.42 10^6/ul (4.20-5.40); RED CELL DISTRIBUTION WIDTH 14.6 % (11.5-14.5)
[2018-08-06] MEDS: PIPER-TAZO 3.375 GM IV (PMX) 100 ML IVPB ×5 (06:43→23:32)
[2018-08-06] MEDS: FUROSEMIDE 40 MG INJ IV ×2 (06:43→17:34)
[2018-08-06 07:07] LABS: ANION GAP 9 (5-13); BLOOD UREA NITROGEN 22 mg/dl (7-20); CALCIUM 9.5 mg/dl (8.4-10.2); CARBON DIOXIDE 35 mmol/L (21-31); CHLORIDE 100 mmol/L (97-110); Estimated GFR > 60 mL/min (>60); GLUCOSE 132 mg/dl (70-220); POTASSIUM 3.6 mmol/L (3.5-5.1); SODIUM 144 mmol/L (135-144)
[2018-08-06] MEDS: INSULIN ASPART [NOVOLOG] 3 ML PEN SC ×7 (08:00→20:52)
[2018-08-06] MEDS: APIXABAN 5 MG TABLET PO ×2 (08:45→20:54)
[2018-08-06] MEDS: AMLODIPINE 10 MG TAB PO (08:45)
[2018-08-06 08:53] LABS: AADO2 Arterial 105.4 mmHg (7.0-24.0); Allen Test ACCEPTAB; Arterial Base Excess 10.4 mmol/L (-3.0-3); Arterial Blood Gas Oxygen Sat 91.4 mmHG (95.0-98.0); Arterial COHb 0.7 % (0.0-3.0); Arterial Fraction of Oxyhgb 90.6 % (93.0-99.0); Arterial HCO3 37.4 mmol/L (22.0-26.0); Arterial MetHb 0.2 % (0.0-1.5); Arterial pCO2 59.4 mmhg (35-45); MODE NASAL CANNULA; Site Right Radial
[2018-08-06] MEDS: DIGOXIN 0.25 MG TAB PO (14:00)
[2018-08-06] MEDS: ATORVASTATIN 20 MG TAB PO (20:53)
[2018-08-06] MEDS: INSULIN GLARGINE [LANTus] (100 UNITS/ML) SYG SC (20:59)
[2018-08-07 01:29] LABS: VANCOMYCIN,TROUGH 16.8 ug/ml (10.0-20.0)
[2018-08-07] MEDS: ALBUTEROL/IPRATROPIUM (NEB) 3 ML AMP HHN ×4 (01:45→14:11)
[2018-08-07] MEDS: VANCOMYCIN 1 GM 250 ML IVPB ×2 (01:52→13:30)
[2018-08-07] MEDS: PIPER-TAZO 3.375 GM IV (PMX) 100 ML IVPB ×2 (05:20→11:29)
[2018-08-07] MEDS: FUROSEMIDE 40 MG INJ IV (05:22)
[2018-08-07 05:55] LABS: ADD MAN DIFF? NO
[2018-08-07 05:59] LABS: WHITE BLOOD COUNT 9.3 10^3/ul (4.8-10.8)
[2018-08-07 05:59] LABS: BASOPHIL # 0.1 10^3/ul (0.0-0.1); BASOPHILS % 0.5 % (0.0-2.0); EOSINOPHILS % 0.4 % (0.0-7.0); HEMATOCRIT 40.8 % (37.0-47.0); HEMOGLOBIN 12.4 g/dl (12.0-16.0); LYMPHOCYTES % 21.1 % (15.0-51.0); MEAN CORPUSCULAR HEMOGLOBIN 27.8 pg (29.0-33.0); MEAN CORPUSCULAR HGB CONC 30.4 g/dl (32.0-37.0); MEAN CORPUSCULAR VOLUME 91.5 fl (82.0-101.0); MEAN PLATELET VOLUME 10.2 fl (7.4-10.4); MONOCYTE # 0.5 10^3/ul (0.3-0.9); MONOCYTES % 4.9 % (0.0-11.0); NEUTROPHIL # 6.8 10^3/ul (1.6-7.5); NEUTROPHILS % 72.7 % (39.0-77.0); PLATELET COUNT 221 10^3/UL (140-415); RED BLOOD COUNT 4.46 10^6/ul (4.20-5.40); RED CELL DISTRIBUTION WIDTH 14.4 % (11.5-14.5)
[2018-08-07 06:19] LABS: ANION GAP 6 (5-13); BLOOD UREA NITROGEN 20 mg/dl (7-20); CARBON DIOXIDE 35 mmol/L (21-31); CHLORIDE 101 mmol/L (97-110); CREATININE 0.92 mg/dl (0.44-1.00); Estimated GFR > 60 mL/min (>60); GLUCOSE 159 mg/dl (70-220); POTASSIUM 3.3 mmol/L (3.5-5.1); SODIUM 142 mmol/L (135-144)
[2018-08-07] MEDS: INSULIN ASPART [NOVOLOG] 3 ML PEN SC ×4 (07:45→11:41)
[2018-08-07] MEDS: APIXABAN 5 MG TABLET PO (09:29)
[2018-08-07] MEDS: AMLODIPINE 10 MG TAB PO (09:30)
[2018-08-07] MEDS: POTASSIUM CHLORIDE (SR) 20 MEQ TAB PO (11:29)
[2018-08-07] MEDS: DIGOXIN 0.25 MG TAB PO (13:30)
[2018-08-10 12:06] LABS: PROCALCITONIN <0.10 ng/mL (<0.10)
== END 2018-08-07 16:15 | disposition home or self-care (01) | DRG 291 ==
LOC: E/R 10:08 → 6WM 12:19
PROVIDERS: Internal Medicine
PROC: 5A09357 Assistance with Respiratory Ventilation, Less than 24 Consecutive Hours, Continuous Positive Airway Pressure (ICD-10-PCS; principal; 2018-08-04)
DX: I11.0 Hypertensive heart disease with heart failure (principal); J96.22 Acute and chronic respiratory failure with hypercapnia; J96.21 Acute and chronic respiratory failure with hypoxia; N17.9 Acute kidney failure, unspecified; E66.2 Morbid (severe) obesity with alveolar hypoventilation; I50.33 Acute on chronic diastolic (congestive) heart failure; E11.65 Type 2 diabetes mellitus with hyperglycemia; I48.91 Unspecified atrial fibrillation; Z99.81 Dependence on supplemental oxygen; Z68.44 Body mass index [BMI] 60.0-69.9, adult
CPT/HCPCS: 36600; 71045; 71250; 80048; 80053; 80202; 81001; 81003; 82550; 82553; 82803; 82962; 83036; 83605; 83880; 84145; 84484; 85025; 85610; 85730; 87040-91; 93005; 93970; 94640; 94645; 94660; 97162; 99291-25; G0378

== ENCOUNTER 2018-09-05 09:47 | Inpatient (IN) | payer MEDICARE, OTHER ==
[2018-09-05] MEDS: ASPIRIN 81 MG TAB PO (10:31)
[2018-09-05] MEDS: FUROSEMIDE 40 MG INJ IV ×2 (10:32→18:19)
[2018-09-05 10:55] LABS: ABNORMAL IP MESSAGE 1; ADD MAN DIFF? NO; BASOPHIL # 0.1 10^3/ul (0.0-0.1); BASOPHILS % 0.6 % (0.0-2.0); EOSINOPHILS % 0.1 % (0.0-7.0); HEMATOCRIT 47.8 % (37.0-47.0); HEMOGLOBIN 13.8 g/dl (12.0-16.0); LYMPHOCYTES # 1.5 10^3/ul (0.8-2.9); LYMPHOCYTES % 12.2 % (15.0-51.0); MEAN CORPUSCULAR HEMOGLOBIN 27.8 pg (29.0-33.0); MEAN CORPUSCULAR HGB CONC 28.9 g/dl (32.0-37.0); MEAN CORPUSCULAR VOLUME 96.2 fl (82.0-101.0); MEAN PLATELET VOLUME 10.8 fl (7.4-10.4); MONOCYTE # 0.4 10^3/ul (0.3-0.9); MONOCYTES % 3.3 % (0.0-11.0); NEUTROPHIL # 10.2 10^3/ul (1.6-7.5); NEUTROPHILS % 82.9 % (39.0-77.0); PLATELET COUNT 264 10^3/UL (140-415); RED BLOOD COUNT 4.97 10^6/ul (4.20-5.40); RED CELL DISTRIBUTION WIDTH 15.5 % (11.5-14.5)
[2018-09-05 10:55] LABS: WHITE BLOOD COUNT 12.4 10^3/ul (4.8-10.8)
[2018-09-05 11:05] LABS: POSITIVE DIFF @See below
[2018-09-05 11:13] LABS: ALANINE AMINOTRANSFERASE 20 IU/L (13-69); ALBUMIN 4.5 g/dl (3.3-4.9); ALBUMIN/GLOBULIN RATIO 1.36; ALKALINE PHOSPHATASE 113 IU/L (42-121); ANION GAP 8 (5-13); ASPARTATE AMINO TRANSFERASE 18 IU/L (15-46); BILIRUBIN,INDIRECT 0.8 mg/dl (0-1.1); BILIRUBIN,TOTAL 0.8 mg/dl (0.2-1.3); BLOOD UREA NITROGEN 21 mg/dl (7-20); CALCIUM 10.3 mg/dl (8.4-10.2); CARBON DIOXIDE 35 mmol/L (21-31); CHLORIDE 101 mmol/L (97-110); CREATININE 0.98 mg/dl (0.44-1.00); Estimated GFR 57 mL/min (>60); GLUCOSE 276 mg/dl (70-220); LIPASE 96 U/L (23-300); SODIUM 144 mmol/L (135-144); TOTAL PROTEIN 7.8 g/dl (6.1-8.1)
[2018-09-05 11:23] LABS: POTASSIUM 5.2 mmol/L (3.5-5.1)
[2018-09-05 11:34] LABS: TROPONIN-I < 0.012 ng/ml (0.000-0.120)
[2018-09-05] MEDS: ENALAPRILAT 1.25 MG INJ IV (12:58)
[2018-09-05 13:41] LABS: ADD UMIC NO; UR ASCORBIC ACID NEGATIVE (NEGATIVE); UR BILIRUBIN (Dip) NEGATIVE (NEGATIVE); UR BLOOD (Dip) NEGATIVE (NEGATIVE); UR CLARITY CLEAR (CLEAR); UR COLOR STRAW (YELLOW); UR GLUCOSE (Dip) 3+ mg/dL (NEGATIVE); UR KETONES (Dip) NEGATIVE (NEGATIVE); UR LEUKOCYTE ESTERASE (Dip) NEGATIVE Leu/ul (NEGATIVE); UR NITRITE (Dip) NEGATIVE (NEGATIVE); UR SPECIFIC GRAVITY (Dip) 1.007 (1.003-1.030); UR TOTAL PROTEIN (Dip) NEGATIVE (NEGATIVE); UR UROBILINOGEN (Dip) NEGATIVE (NEGATIVE)
[2018-09-05 14:39] LABS: B-TYPE NATRIURETIC PEPTIDE 2080 PG/ML (0-125)
[2018-09-05] MEDS ORDERED: ACETAMINOPHEN 325 MG TAB PO (15:00)
[2018-09-05] MEDS ORDERED: ONDANSETRON 4 MG INJ IV (15:00)
[2018-09-05] MEDS ORDERED: HYDROCODONE/APAP (5/325) TAB PO (15:00)
[2018-09-05] MEDS ORDERED: IPRATROPIUM (NEB) 0.5 MG/2.5 ML AMP HHN (15:00)
[2018-09-05] MEDS ORDERED: NACL 0.9% 3 ML SYG IV (15:00)
[2018-09-05 15:37] LABS: POTASSIUM 4.7 mmol/L (3.5-5.1)
[2018-09-05 15:38] LABS: CREATINE KINASE < 20 IU/L (23-200)
[2018-09-05 15:48] LABS: CK-MB 0.22 ng/ml (0.0-2.4)
[2018-09-05 15:51] LABS: TROPONIN-I < 0.012 ng/ml (0.000-0.120)
[2018-09-05 16:02] LABS: B-TYPE NATRIURETIC PEPTIDE 1890 PG/ML (0-125)
[2018-09-05 16:04] LABS: AADO2 Arterial 46.5 mmHg (7.0-24.0); Allen Test ACCEPTAB; Arterial Base Excess 8.2 mmol/L (-3.0-3); Arterial Blood Gas Oxygen Sat 90.4 mmHG (95.0-98.0); Arterial Fraction of Oxyhgb 89.3 % (93.0-99.0); Arterial HCO3 37.5 mmol/L (22.0-26.0); Arterial MetHb 0.2 % (0.0-1.5); Arterial pCO2 75.9 mmhg (35-45); MODE NASAL CANNULA; Site Right Radial
[2018-09-05] MEDS: SOD CHLORIDE 0.9% 100 ML (16:32)
[2018-09-05] MEDS: IOHEXOL 100 ML (16:33)
[2018-09-05] MEDS: LEVOFLOXACIN 500MG/D5W (PMX) 100 ML IVPB (16:33)
[2018-09-05] MEDS ORDERED: GLUCOSE GEL 15 GRAM TUBE PO ×2 (17:30)
[2018-09-05] MEDS ORDERED: GLUCAGON 1 MG INJ IM (17:30)
[2018-09-05] MEDS ORDERED: DEXTROSE 50% 50 ML SYRINGE IV ×2 (17:30)
[2018-09-05] MEDS ORDERED: GLUCOSE GEL 15 GRAM TUBE BUCCAL (17:30)
[2018-09-05] MEDS: INSULIN ASPART [NOVOLOG] 3 ML PEN SC ×3 (18:00→20:16)
[2018-09-05] MEDS: LEVALBUTEROL (NEB) 1.25 MG/0.5 ML AMP HHN (20:15)
[2018-09-05] MEDS: ATORVASTATIN 20 MG TAB PO (20:15)
[2018-09-05] MEDS: APIXABAN 5 MG TABLET PO (20:15)
[2018-09-05] MEDS: FAMOTIDINE 20 MG TAB PO (20:16)
[2018-09-05] MEDS: INSULIN GLARGINE [LANTus] (100 UNITS/ML) SYG SC (20:25)
[2018-09-05 21:38] LABS: CREATINE KINASE < 20 IU/L (23-200)
[2018-09-05 21:39] LABS: CK-MB < 0.22 ng/ml (0.0-2.4); TROPONIN-I < 0.012 ng/ml (0.000-0.120)
[2018-09-06] MEDS: LEVALBUTEROL (NEB) 1.25 MG/0.5 ML AMP HHN ×6 (00:18→21:13)
[2018-09-06] MEDS: ACCU-CHEK XX (02:00)
[2018-09-06] MEDS: FUROSEMIDE 40 MG INJ IV (06:08)
[2018-09-06 06:14] LABS: ADD MAN DIFF? NO
[2018-09-06 06:20] LABS: BASOPHIL # 0.1 10^3/ul (0.0-0.1); BASOPHILS % 0.8 % (0.0-2.0); EOSINOPHILS % 0.2 % (0.0-7.0); HEMATOCRIT 40.9 % (37.0-47.0); HEMOGLOBIN 12.2 g/dl (12.0-16.0); LYMPHOCYTES # 1.8 10^3/ul (0.8-2.9); LYMPHOCYTES % 21.2 % (15.0-51.0); MEAN CORPUSCULAR HEMOGLOBIN 27.7 pg (29.0-33.0); MEAN CORPUSCULAR HGB CONC 29.8 g/dl (32.0-37.0); MEAN CORPUSCULAR VOLUME 92.7 fl (82.0-101.0); MEAN PLATELET VOLUME 10.5 fl (7.4-10.4); MONOCYTE # 0.5 10^3/ul (0.3-0.9); MONOCYTES % 6.3 % (0.0-11.0); NEUTROPHIL # 5.9 10^3/ul (1.6-7.5); PLATELET COUNT 189 10^3/UL (140-415); RED BLOOD COUNT 4.41 10^6/ul (4.20-5.40); RED CELL DISTRIBUTION WIDTH 15.3 % (11.5-14.5)
[2018-09-06 06:20] LABS: WHITE BLOOD COUNT 8.4 10^3/ul (4.8-10.8)
[2018-09-06 06:54] LABS: ALANINE AMINOTRANSFERASE 22 IU/L (13-69); ALBUMIN 3.7 g/dl (3.3-4.9); ALBUMIN/GLOBULIN RATIO 1.27; ALKALINE PHOSPHATASE 89 IU/L (42-121); ANION GAP 5 (5-13); ASPARTATE AMINO TRANSFERASE 16 IU/L (15-46); BILIRUBIN,INDIRECT 0.9 mg/dl (0-1.1); BILIRUBIN,TOTAL 0.9 mg/dl (0.2-1.3); BLOOD UREA NITROGEN 21 mg/dl (7-20); CALCIUM 9.7 mg/dl (8.4-10.2); CARBON DIOXIDE 38 mmol/L (21-31); CHLORIDE 99 mmol/L (97-110); CHOL/HDL RATIO 3.2 RATIO; CHOLESTEROL 90 mg/dl (100-200); CREATININE 0.93 mg/dl (0.44-1.00); Estimated GFR > 60 mL/min (>60); GLUCOSE 149 mg/dl (70-220); HDL CHOLESTEROL 28 mg/dl (35-98); LDL CHOLESTEROL,CALCULATED 40 mg/dl; MAGNESIUM 1.9 mg/dl (1.7-2.5); PHOSPHORUS 3.6 mg/dl (2.5-4.9); SODIUM 142 mmol/L (135-144); TOTAL PROTEIN 6.6 g/dl (6.1-8.1); TRIGLYCERIDES 109 mg/dl (0-149)
[2018-09-06 07:09] LABS: HEMOGLOBIN A1C 8.2 % (0-5.9)
[2018-09-06] MEDS: INSULIN ASPART [NOVOLOG] 3 ML PEN SC ×7 (08:14→20:14)
[2018-09-06] MEDS: DIGOXIN 0.25 MG TAB PO (08:23)
[2018-09-06] MEDS: FAMOTIDINE 20 MG TAB PO ×2 (08:23→20:13)
[2018-09-06] MEDS: APIXABAN 5 MG TABLET PO ×2 (08:23→20:14)
[2018-09-06] MEDS ORDERED: ENOXAPARIN 40 MG/0.4 ML SYG SC (09:00)
[2018-09-06] MEDS: BUMETANIDE 1 MG INJ IV (12:52)
[2018-09-06] MEDS: LEVOFLOXACIN 500MG/D5W (PMX) 100 ML IVPB (15:07)
[2018-09-06] MEDS: BUMETANIDE 3 MG in DEXTROSE 5% 18 ML IV (16:40)
[2018-09-06] MEDS: ATORVASTATIN 20 MG TAB PO (20:14)
[2018-09-06] MEDS: INSULIN GLARGINE [LANTus] (100 UNITS/ML) SYG SC (21:01)
[2018-09-07] MEDS: LEVALBUTEROL (NEB) 1.25 MG/0.5 ML AMP HHN ×6 (00:16→21:13)
[2018-09-07] MEDS: ACCU-CHEK XX (02:00)
[2018-09-07] MEDS: BUMETANIDE 1 MG INJ IV (06:08)
[2018-09-07 06:16] LABS: BLOOD UREA NITROGEN 23 mg/dl (7-20); CALCIUM 9.5 mg/dl (8.4-10.2); CHLORIDE 95 mmol/L (97-110); CREATININE 0.98 mg/dl (0.44-1.00); Estimated GFR 57 mL/min (>60); GLUCOSE 221 mg/dl (70-220); MAGNESIUM 1.8 mg/dl (1.7-2.5); POTASSIUM 3.7 mmol/L (3.5-5.1); SODIUM 143 mmol/L (135-144)
[2018-09-07 06:25] LABS: ANION GAP 5 (5-13); CARBON DIOXIDE 43 mmol/L (21-31)
[2018-09-07] MEDS: INSULIN ASPART [NOVOLOG] 3 ML PEN SC ×7 (07:55→21:00)
[2018-09-07] MEDS: FAMOTIDINE 20 MG TAB PO ×2 (08:45→20:50)
[2018-09-07] MEDS: APIXABAN 5 MG TABLET PO ×2 (08:45→20:50)
[2018-09-07] MEDS: DIGOXIN 0.25 MG TAB PO (08:45)
[2018-09-07 12:06] LABS: INR 1.46; PROTIME 17.8 Sec (11.9-14.9); PT RATIO 1.4
[2018-09-07] MEDS: LOSARTAN 25 MG TAB PO (12:06)
[2018-09-07 12:07] LABS: PARTIAL THROMBOPLASTIN TIME 33.7 Sec (23.0-35.0)
[2018-09-07] MEDS: LIDOCAINE 1% (MPF) 5 ML VIAL (14:34)
[2018-09-07] MEDS: LEVOFLOXACIN 500MG/D5W (PMX) 100 ML IVPB (15:33)
[2018-09-07] MEDS: POTASSIUM CHLORIDE (SR) 20 MEQ TAB PO (15:33)
[2018-09-07 16:06] LABS: FLD PMN% 3.9 %; FLD RBC 3000 /uL; FLD WBC 920 /cmm
[2018-09-07 16:16] LABS: FLUID TYPE PLEURAL FLUID
[2018-09-07 16:20] LABS: FLUID GLUCOSE 215 mg/dl; FLUID LD 352 U/L; FLUID TOTAL PROTEIN 4.2 g/dl
[2018-09-07 16:21] LABS: FLUID TYPE PLEURAL FLUID
[2018-09-07] MEDS: MAGNESIUM SULFATE 2 GM/50 ML 50 ML IVPB (17:16)
[2018-09-07 18:09] LABS: FLD CLARITY CLOUDY
[2018-09-07 18:10] LABS: FLD COLOR YELLOW; FLD MN% 96.1 %
[2018-09-07] MEDS: BUMETANIDE 3 MG in DEXTROSE 5% 18 ML IV (18:48)
[2018-09-07] MEDS: ATORVASTATIN 20 MG TAB PO (20:50)
[2018-09-07] MEDS: INSULIN GLARGINE [LANTus] (100 UNITS/ML) SYG SC (20:56)
[2018-09-08] MEDS: LEVALBUTEROL (NEB) 1.25 MG/0.5 ML AMP HHN ×5 (01:01→15:22)
[2018-09-08] MEDS: ACCU-CHEK XX (02:00)
[2018-09-08] MEDS: BUMETANIDE 1 MG TAB PO ×2 (05:32→17:22)
[2018-09-08 06:34] LABS: BLOOD UREA NITROGEN 23 mg/dl (7-20); CALCIUM 9.1 mg/dl (8.4-10.2); CHLORIDE 96 mmol/L (97-110); CREATININE 0.89 mg/dl (0.44-1.00); Estimated GFR > 60 mL/min (>60); GLUCOSE 151 mg/dl (70-220); POTASSIUM 3.7 mmol/L (3.5-5.1); SODIUM 141 mmol/L (135-144)
[2018-09-08 06:42] LABS: ANION GAP 6 (5-13)
[2018-09-08 06:48] LABS: CARBON DIOXIDE 39 mmol/L (21-31)
[2018-09-08] MEDS: INSULIN ASPART [NOVOLOG] 3 ML PEN SC ×4 (07:33→11:34)
[2018-09-08] MEDS: FAMOTIDINE 20 MG TAB PO (08:13)
[2018-09-08] MEDS: LOSARTAN 25 MG TAB PO (08:14)
[2018-09-08] MEDS: APIXABAN 5 MG TABLET PO (08:14)
[2018-09-08] MEDS: DIGOXIN 0.25 MG TAB PO (08:14)
[2018-09-08] MEDS: POTASSIUM CHLORIDE (SR) 20 MEQ TAB PO (15:14)
[2018-09-08] MEDS: LEVOFLOXACIN 500MG/D5W (PMX) 100 ML IVPB (15:15)
== END 2018-09-08 17:45 | disposition home or self-care (01) | DRG 291 ==
LOC: E/R 09:47 → 6WM 12:20
PROC: 0W993ZX Drainage of Right Pleural Cavity, Percutaneous Approach, Diagnostic (ICD-10-PCS; principal; 2018-09-07)
DX: I11.0 Hypertensive heart disease with heart failure (principal); J96.01 Acute respiratory failure with hypoxia; J18.9 Pneumonia, unspecified organism; J96.02 Acute respiratory failure with hypercapnia; Z68.43 Body mass index [BMI] 50.0-59.9, adult; J90 Pleural effusion, not elsewhere classified; I50.33 Acute on chronic diastolic (congestive) heart failure; I48.2 Chronic atrial fibrillation; E11.8 Type 2 diabetes mellitus with unspecified complications; E87.5 Hyperkalemia; E66.01 Morbid (severe) obesity due to excess calories; J44.9 Chronic obstructive pulmonary disease, unspecified; G47.33 Obstructive sleep apnea (adult) (pediatric); E78.5 Hyperlipidemia, unspecified; F17.200 Nicotine dependence, unspecified, uncomplicated; I27.20 Pulmonary hypertension, unspecified
CPT/HCPCS: 36415; 36600; 71045; 71275; 76604; 76942; 80048; 80053; 80061; 81003; 82550; 82553; 82803; 82945; 82962; 83036; 83605; 83615; 83690; 83735; 83880; 84100; 84132; 84157; 84484; 85025; 85610; 85730; 87070; 87086; 87102; 87116; 88104; 88305; 89051; 93005; 93306; 94640; 94660; 94664; 99285-25